=== PATIENT | male | born 1970 | race Caucasian/White ===

== ENCOUNTER → 2016-08-17 | Day surgery (SDC) | payer OTHER, MEDICARE ==
[~2016-08-17] VITALS: Ht 154.9 cm; Wt 95.3 kg
[~2016-08-17] MED LIST: GEODON40 MG PO; WELLBUTRIN SR150 M1 PO
--- NOTE | 2016-08-17 13:23 | Operative Report ---
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 MRI showed a medial meniscus tear. Risks and benefits of the procedure were discussed with the patient at length. Risks include but are not limited to nerve damage, muscle damage, infection, blood loss, blood clots, pulmonary embolus, and even . The patient agreed to the above risks and elected to proceed with surgery. Operative/Procedure Note Note: The patient was placed supine on the operating room table. A tourniquet was applied. The lower extremity prepped and draped in normal sterile fashion. A timeout was performed before the incision. The site marking was visualized before incision. After the leg was prepped and draped, an Esmarch was used to exsanguinate the extremity. The tourniquet was inflated. A standard inferolateral portal was established with an 11 blade. The camera was inserted. A medial portal was established with a spinal needle and an 11 blade. The diagnostic arthroscopy was then performed which showed the above findings. The combination of a straight biter as well as a shaver were used to debride the body and posterior horn of the medial meniscus. The straight biter as well as upbiter was then brought in through the lateral portal and further debridement was performed. The shaver was used to further debride the meniscus. A stable rim of cartilage was attained. The shaver was then used to perform a chondroplasty over the medial femoral condyle as well as undersurface of the patella. The knee was copiously irrigated. The portal sites were closed with 3-0 nylon suture in a simple interrupted fashion. The knee was injected with 10 mL of 0.25% Marcaine with epinephrine. A dry sterile dressing was applied and the patient was transferred to PACU in stable condition. Findings: Complex tear of the body and posterior horn the medial meniscus. Grade 3 chondral changes throughout the medial femoral condyle. Medial tibial plateau grade 1 chondral changes. ACL intact. PCL intact. Lateral meniscus intact. Lateral femoral condyle articular cartilage with grade 1 chondral changes. Grade 2 chondral changes of the lateral tibial plateau. Grade 2 and grade 3 chondral changes of the undersurface of the patella. Trochlear articular cartilage intact.
== END ==
LOC: STS 01:09
DX: M23.221 Derangement of posterior horn of medial meniscus due to old tear or injury, right knee (principal); F17.200 Nicotine dependence, unspecified, uncomplicated
CPT/HCPCS: J0131; J0690